=== PATIENT | female | born 1955 | race Caucasian/White ===

== ENCOUNTER 2017-08-10 08:00 | Outpatient (CLI) | payer OTHER | END 2017-08-10 08:01 | disposition home or self-care (01) | LOC: BICMAMMO 08:00 | PROVIDERS: ATTEND Internal Medicine | DX: Z12.31 Encounter for screening mammogram for malignant neoplasm of breast (principal) | CPT/HCPCS: 77063; 77067; G0202 ==

== ENCOUNTER 2018-03-15 10:24 | Outpatient (CLI) | payer BC ==
--- NOTE | 2018-03-15 13:28 | CT ---
CT TEMPORAL BONES NONCONTRAST: Date: 03/15/18 No prior imaging comparison. CLINICAL HISTORY: Unspecified cholesteatoma, right ear. Unspecified perforation of tympanic membrane, right ear. FINDINGS: RIGHT TEMPORAL BONE: The vestibulocochlear apparatus is unremarkable. There is possible slight dehiscence of the superior semicircular canal. Lateral and posterior semicircular canals are unremarkable. Intertemporal course of facial nerve is unremarkable. Ossicular chain is intact. There is no significant middle ear opacif ication. Scutum is intact. No abnormal opacification of Prussak's space to indicate cholesteatoma. There is slight thickening in retraction of the tympanic membrane. There is mild opacification of inf erior right mastoid air cells. LEFT TEMPORAL BONE: The vestibulocochlear apparatus is unremarkable. There is possible slight dehiscence of the superior semicircular canal. Lateral and posterior semicircular canals are unremarkable. Intertemporal course of facial nerve is unremarkable. Ossicular chain is intact. There is no significant middle ear opacif ication. Scutum is intact. No abnormal opacification of Prussak's space to indicate cholesteatoma. Tympanic membrane is unremarkable. No significant opacification of the mastoid air cells. There is incidental note of inspissated debris/fluid within imaged paranasal sinuses. Correlate clini sal. IMPRESSION: 1. There is mild thickening/retraction of tympanic membrane on the right. No evidence of associated cholesteatoma. 2. No significant pathology of the left temporal bone. POS: [facility]
== END 2018-03-15 10:25 | disposition home or self-care (01) ==
LOC: SCSCT 10:24
PROVIDERS: ATTEND Otolaryngology Plastic Surgery within the Head & Neck
DX: H71.91 Unspecified cholesteatoma, right ear (principal); H72.91 Unspecified perforation of tympanic membrane, right ear; H73.891 Other specified disorders of tympanic membrane, right ear
CPT/HCPCS: 70480

== ENCOUNTER 2018-09-17 14:14 | Outpatient (CLI) | payer BC | END 2018-09-17 14:15 | disposition home or self-care (01) | LOC: BICMAMMO 14:14 | PROVIDERS: ATTEND Internal Medicine | DX: Z12.31 Encounter for screening mammogram for malignant neoplasm of breast (principal); Z80.3 Family history of malignant neoplasm of breast | CPT/HCPCS: 77063; 77067 ==

== ENCOUNTER 2019-09-18 13:50 | Outpatient (CLI) | payer BC ==
--- NOTE | 2019-09-18 15:43 | MMO ---
Bilateral MAMMO Bilat Screen [facility]. CLINICAL HISTORY: Patient is 64 years old and is seen for screening. The patient has the following family history of breast cancer: grandmother, malignant (generic). The patient has no personal history of cancer. The patient has a history of left Excisional Biopsy in January, - benign. VIEWS: The views performed were: bilateral craniocaudal with tomosynthesis and bilateral mediolateral oblique with tomosynthesis. FILMS COMPARED: The present examination has been compared to prior imaging studies performed at [facility] on 07/15/2016, 08/10/2017 and 09/17/2018. This study has been interpreted with the assistance of computer-aided detection. MAMMOGRAM FINDINGS: There are scattered fibroglandular densities. Finding 1: There are stable benign appearing calcifications seen in both breasts. Finding 2: There are focal asymmetries with circumscribed margins seen in both breasts. There are no suspicious masses, suspicious calcifications, or new areas of architectural distortion. IMPRESSION: THERE IS NO MAMMOGRAPHIC EVIDENCE OF MALIGNANCY. A ROUTINE FOLLOW-UP MAMMOGRAM IN 1 YEAR IS RECOMMENDED. THE RESULTS OF THIS EXAM WERE SENT TO THE PATIENT. ACR BI-RADS Category 2 - Benign finding MAMMOGRAPHY NOTE: 1. A negative mammogram report should not delay a biopsy if a dominant of clinically suspicious mass is present. 2. Approximately 10% to 15% of breast cancers are not detected by mammography. 3. Adenosis and dense breasts may obscure an underlying neoplasm. Reported by: JIMY MIKE MD Electonically Signed: [id number]
== END 2019-09-18 13:51 | disposition home or self-care (01) ==
LOC: BICMAMMO 13:50
PROVIDERS: ATTEND Internal Medicine
DX: Z12.31 Encounter for screening mammogram for malignant neoplasm of breast (principal); Z80.3 Family history of malignant neoplasm of breast; Z91.89 Other specified personal risk factors, not elsewhere classified
CPT/HCPCS: 77063; 77067

== ENCOUNTER 2020-11-11 12:35 | Outpatient (CLI) | payer BC | END 2020-11-11 12:36 | disposition home or self-care (01) | LOC: BICULT 12:35 | PROVIDERS: ATTEND Internal Medicine | DX: M79.605 Pain in left leg (principal) ==

== ENCOUNTER 2020-11-24 15:14 | Outpatient (CLI) | payer BC | END 2020-11-24 15:15 | disposition home or self-care (01) | LOC: BICMAMMO 15:14 | PROVIDERS: ATTEND Internal Medicine | DX: Z12.31 Encounter for screening mammogram for malignant neoplasm of breast (principal); Z80.3 Family history of malignant neoplasm of breast | CPT/HCPCS: 77063; 77067 ==

== ENCOUNTER 2023-06-05 13:53 | Outpatient (CLI) | payer MEDICARE, BC | END 2023-06-05 13:54 | disposition home or self-care (01) | LOC: BICMAMMO 13:53 | PROVIDERS: ATTEND Internal Medicine | DX: Z12.31 Encounter for screening mammogram for malignant neoplasm of breast (principal); Z80.3 Family history of malignant neoplasm of breast; Z91.89 Other specified personal risk factors, not elsewhere classified | CPT/HCPCS: 77063; 77067 ==

== ENCOUNTER 2024-06-06 14:32 | Outpatient (CLI) | payer MEDICARE | END 2024-06-06 14:33 | disposition home or self-care (01) | LOC: BICMAMMO 14:32 | PROVIDERS: ATTEND Internal Medicine | DX: Z12.31 Encounter for screening mammogram for malignant neoplasm of breast (principal); N63.21 Unspecified lump in the left breast, upper outer quadrant; Z80.3 Family history of malignant neoplasm of breast; Z91.89 Other specified personal risk factors, not elsewhere classified | CPT/HCPCS: 77063; 77067 ==

== ENCOUNTER 2024-06-12 13:54 | Outpatient (CLI) | payer MEDICARE | END 2024-06-12 13:55 | disposition home or self-care (01) | LOC: BICMAMMO 13:54 | PROVIDERS: ATTEND Internal Medicine | DX: Z12.31 Encounter for screening mammogram for malignant neoplasm of breast (principal); Z80.3 Family history of malignant neoplasm of breast; Z91.89 Other specified personal risk factors, not elsewhere classified | CPT/HCPCS: 76642; 77065; G0279 ==